=== PATIENT | female | born 1960 | race Caucasian/White ===

== ENCOUNTER 2019-08-23 07:53 | Outpatient (CLI) | payer BC, OTHER, SELFPAY ==
--- NOTE | ~2019-08-23 | MM_ITS ---
EXAMINATION: MM screening [facility] BI w avril HISTORY: Screening mammogram TECHNIQUE: Craniocaudal and mediolateral oblique 3-D tomosynthesis images were obtained and synthetic 2-D images were generated. CAD analysis was submitted and interpreted. COMPARISON: 08/18/2018, 04/21/2017, 08/26/2014 BREAST PARENCHYMAL COMPOSITION: The breasts are heterogeneously dense, which may obscure small masses . FINDINGS: There is no evidence of suspicious mass, calcification, or architectural distortion to sugg est malignancy in either breast. There has been no suspicious interval change. IMPRESSION: 1. No mammographic evidence of malignancy. 2. Recommend routine screening mammography in one year. BI-RADS Category 1: Negative Reviewed, dictated and finalized at location A.
== END 2019-08-23 07:54 | disposition home or self-care (01) ==
DX: Z12.31 Encounter for screening mammogram for malignant neoplasm of breast (principal)
CPT/HCPCS: 77063; 77067

== ENCOUNTER 2020-11-18 14:46 | Outpatient (CLI) | payer BC, OTHER, SELFPAY ==
--- NOTE | ~2020-11-18 | MM_ITS ---
EXAMINATION: MM screening [facility] BI w avril HISTORY: Screening TECHNIQUE: Craniocaudal and mediolateral oblique 3-D tomosynthesis images were obtained and synthetic 2-D images were generated. CAD analysis was submitted and interpreted. COMPARISON: Comparison to multiple prior studies sequentially, with oldest reviewed study dated 03/23. BREAST PARENCHYMAL COMPOSITION: The breasts are heterogeneously dense, which may obscure small masses . FINDINGS: There is no evidence of suspicious mass, calcification, or architectural distortion to sugg est malignancy in either breast. There has been no suspicious interval change. IMPRESSION: 1. No mammographic evidence of malignancy. 2. Recommend routine screening mammography in one year. BI-RADS Category 1: Negative Reviewed, dictated and finalized at location A.
== END 2020-11-18 14:47 | disposition home or self-care (01) ==
LOC: ANHIMG 14:47
PROVIDERS: PCP Family Medicine; Visit Provider Family Medicine
DX: Z12.31 Encounter for screening mammogram for malignant neoplasm of breast (principal)
CPT/HCPCS: 77063; 77067

== ENCOUNTER 2022-06-01 16:12 | Outpatient (CLI) | payer BC, OTHER, SELFPAY ==
--- NOTE | ~2022-06-01 | MM_ITS ---
EXAMINATION: MM screening [facility] BI w avril HISTORY: Screening TECHNIQUE: Craniocaudal and mediolateral oblique 3-D tomosynthesis images were obtained and synthetic 2-D images were generated. CAD analysis was submitted and interpreted. COMPARISON: Comparison to multiple prior studies sequentially, with oldest reviewed study dated 04/2013. BREAST PARENCHYMAL COMPOSITION: The breasts are heterogeneously dense, which may obscure small masses . FINDINGS: There is no evidence of suspicious mass, calcification, or architectural distortion to sugg est malignancy in either breast. There has been no suspicious interval change. IMPRESSION: 1. No mammographic evidence of malignancy. 2. Recommend routine screening mammography in one year. BI-RADS Category 1: Negative Reviewed, dictated and finalized at location A.
== END 2022-06-01 16:13 | disposition home or self-care (01) ==
LOC: ANHIMG 16:14
PROVIDERS: PCP Family Medicine; Visit Provider Family Medicine
DX: Z12.31 Encounter for screening mammogram for malignant neoplasm of breast (principal)
CPT/HCPCS: 77063; 77067

== ENCOUNTER 2022-12-22 00:12 | Day surgery (SDC) | payer BC, OTHER, SELFPAY ==
[2022-12-16 09:53] VITALS: BMI 21.7
[2022-12-22 06:34] VITALS: BP 99/65; PULSE 87; RESP 18; TEMP 36.2; O2SAT 99; BMI 22.8
[2022-12-22 06:44] LABS: Glucose Point of Care 230 mg/dl (65-105)
--- NOTE | 2022-12-22 06:46 | SUR.PREOP ---
Blood sugar 230. Pt. states that she took 1 Unit of Novalog at 0600. Dr. Silvestre aware.
[2022-12-22] MEDS: LACTATED RINGERS 1,000 ML 150 ML IV CONT (07:04)
--- NOTE | 2022-12-22 07:19 | PM.HPGS ---
History of Present Illness History of Present Illness Consent: Risks, benefits, and alternatives have been discussed and questions answered. Patient agrees to proceed with procedure. Chief complaint: Hx colon polyps Narrative: Misti Mcclain is a 62 year old female Presents for screening colonoscopy. Patient's current weight appetite and bowel movements are normal. Patient denies abdominal pain. She has had no bleeding. Patient does have a prior history of colon polyps. Colonoscopy 2018 was unremarkable. She had an adenomatous colon polyp in 2010. Additionally patient's sister is found to have several premalignant colon polyps. Patient presents for screening colonoscopy. Review of Systems Review of Systems: Review of systems noncontributory. [facility] Social History Social History Smoking packs per day: 0.75 Smoking cigarettes per day: 15.0 Years smoked: 15 Smoking pack-years: 11.25 Smoking status: Former smoker Tobacco type: cigarettes Alcohol intake: current Substance use: never Substance use type: does not use Living arrangements: alone Spiritual care concerns: No Meds Home Medications and Allergies Home Medications Medication Instructions Recorded Confirmed Type apixaban 5 mg tablet (Eliquis) 5 mg PO BID 12/16/22 12/16/22 History cetirizine 10 mg tablet (Zyrtec) 10 mg PO DAILY 12/16/22 12/16/22 History cholecalciferol (vitamin D3) 50 100 mcg PO DAILY 12/16/22 12/16/22 History mcg (2,000 unit) tablet (Vitamin D3) insulin aspart U-100 100 unit/mL See Rx Instructions .Route .COMPLEX 12/16/22 12/16/22 History (3 mL) subcutaneous pen (Novolog FlexPen U-100 Insulin aspart) insulin glargine 100 unit/mL 16.5 unit subcut HS 12/16/22 12/16/22 History subcutaneous solution (Lantus U-100 Insulin) metformin 500 mg tablet 500 mg PO BID 12/16/22 12/16/22 History zinc 22 mg tablet 22 mg PO DAILY 12/16/22 12/16/22 History Allergies Allergy/AdvReac Type Severity Reaction Status Date / Time No Known Allergies Allergy Verified 12/16/22 09:53 Vital Signs Vital Signs - 24 hr 12/22/22 06:34 Temperature 97.2 F L Pulse Rate 87 Respiratory Rate 18 Blood Pressure 99/65 L Pulse Oximetry 99 Oxygen Delivery Room Air Exam Narrative: Physical exam reveals patient to be alert. Vital signs stable. HEENT exam is unremarkable. Patient is anicteric. Lungs are clear to auscultation and percussion. Heart is without murmur or extra sounds. Abdomen with bowel sounds present soft nontender with no organomegaly. Digital external rectal exam normal. Assessment and Plan Assessment and plan (1) History of colon polyps: Code(s): Z86.010 - Personal history of colonic polyps Status: Acute Assessment and Plan: Patient has a history of adenomatous colon polyps. Additionally her sister has had colon polyps. Plan for surveillance colonoscopy now and consider this at 5 year intervals.
--- NOTE | 2022-12-22 07:24 | WPDANESEPPF ---
Anes - Initial Pre Proc Eval Procedure: Operation Date: 12/22/22 07:30 Proposed Procedures p Colonoscopy - Miko King MD Date/Time: 12/22/22 07:24 Surgeon: Miko King MD Pre Op Diagnosis: Hx colon polyps Patient Data Age: 62 Gender: F Height: 1.73 m Weight: 68.1 kg Last Vital Signs Temp 97.2 F L 12/22/22 06:34 Pulse 87 12/22/22 06:34 Resp 18 12/22/22 06:34 BP 99/65 L 12/22/22 06:34 Pulse Ox 99 12/22/22 06:34 O2 Del Method Room Air 12/22/22 06:34 Allergies Allergy/AdvReac Type Severity Reaction Status Date / Time No Known Allergies Allergy Verified 12/16/22 09:53 Home Medications Medication Instructions Recorded Confirmed Type apixaban 5 mg tablet (Eliquis) 5 mg PO BID 12/16/22 12/16/22 History cetirizine 10 mg tablet (Zyrtec) 10 mg PO DAILY 12/16/22 12/16/22 History cholecalciferol (vitamin D3) 50 100 mcg PO DAILY 12/16/22 12/16/22 History mcg (2,000 unit) tablet (Vitamin D3) insulin aspart U-100 100 unit/mL See Rx Instructions .Route .COMPLEX 12/16/22 12/16/22 History (3 mL) subcutaneous pen (Novolog FlexPen U-100 Insulin aspart) insulin glargine 100 unit/mL 16.5 unit subcut HS 12/16/22 12/16/22 History subcutaneous solution (Lantus U-100 Insulin) metformin 500 mg tablet 500 mg PO BID 12/16/22 12/16/22 History zinc 22 mg tablet 22 mg PO DAILY 12/16/22 12/16/22 History Laboratory Tests 12/22/22 06:40 POC Capillary Glucose 230 H mg/dl (65-105) Patient hx anesthesia problems: none Family hx anesthesia problems: none Results Review: All pre-operative results and documents have been reviewed as part of the pre-operative evaluation. [facility] Social History Social History Smoking packs per day: 0.75 Smoking cigarettes per day: 15.0 Years smoked: 15 Smoking pack-years: 11.25 Smoking status: Former smoker Tobacco type: cigarettes Alcohol intake: current Substance use: never Substance use type: does not use Living arrangements: alone Spiritual care concerns: No Anes - Eval Final PreProcedure Day of Procedure 12/22/22 07:24 Patient weight: normal Heart: regular rate and rhythm Lungs: clear to auscultation Airway: Mallampati scale class II Neurological: alert and oriented Last oral intake: >/= 8 hours ASA classification: III Emergent: no Anesthetic plan: proceed Anesthesia type and monitoring: general GIVS and standard monitoring Results Review: All pre-operative results and documents have been reviewed as part of the pre-operative evaluation. Informed Consent: The patient's anesthetic plan and its attendant risks and benefits were discussed with the patient/family/POA. Questions were solicited and answers provided to the satisfaction of the patient/family/POA.
[2022-12-22 07:52] VITALS: BP 124/96; PULSE 81; RESP 18; O2SAT 100
[2022-12-22 08:02] VITALS: BP 102/66; PULSE 73; RESP 15; O2SAT 100
--- NOTE | 2022-12-22 08:03 | SUR.PHASEII ---
BLOOD SUGAR 236 PER PT DEVICE
[2022-12-22 08:12] VITALS: BP 108/67; PULSE 76; RESP 17; O2SAT 100
== END 2022-12-22 08:26 | disposition home or self-care (01) ==
PROVIDERS: PCP Family Medicine; Visit Provider Internal Medicine Gastroenterology
PROC: 0DJD8ZZ Inspection of Lower Intestinal Tract, Via Natural or Artificial Opening Endoscopic (ICD-10-PCS; CPT 45378; principal; 2022-12-22 07:30)
DX: Z12.11 Encounter for screening for malignant neoplasm of colon (principal); K51.90 Ulcerative colitis, unspecified, without complications; Z86.010 Personal history of colon polyps; Z83.719 Family history of colon polyps, unspecified; Z79.01 Long term (current) use of anticoagulants; Z79.4 Long term (current) use of insulin; Z79.84 Long term (current) use of oral hypoglycemic drugs; Z87.891 Personal history of nicotine dependence
CPT/HCPCS: 45380; 82948; 88305; J2704; J7120

== ENCOUNTER 2023-06-10 08:29 | Outpatient (CLI) | payer BC, OTHER, SELFPAY ==
--- NOTE | ~2023-06-10 | MM_ITS ---
EXAMINATION: MM screening [facility] BI w avril HISTORY: Screening mammogram TECHNIQUE: Craniocaudal and mediolateral oblique 3-D tomosynthesis images were obtained and synthetic 2-D images were generated. CAD analysis was submitted and interpreted. COMPARISON: 06/01/2022, 11/18/2020 bilateral screening mammogram examinations BREAST PARENCHYMAL COMPOSITION: The breasts are extremely dense, which lowers the sensitivity of mamm ography. FINDINGS: There is no evidence of suspicious mass, calcification, or architectural distortion to sugg est malignancy in either breast. There has been no suspicious interval change. IMPRESSION: 1. No mammographic evidence of malignancy. 2. Recommend routine screening mammography in one year. BI-RADS Category 1: Negative Reviewed, dictated and finalized at location B.
== END 2023-06-10 08:30 | disposition home or self-care (01) ==
PROVIDERS: PCP Family Medicine; Visit Provider Family Medicine
DX: Z12.31 Encounter for screening mammogram for malignant neoplasm of breast (principal)
CPT/HCPCS: 77063; 77067

== ENCOUNTER 2024-07-01 09:27 | Outpatient (CLI) | payer BC, OTHER, SELFPAY ==
--- NOTE | ~2024-07-01 | MM_ITS ---
EXAMINATION: MM screening kristin BI w avril HISTORY: Screening mammogram TECHNIQUE: Craniocaudal and mediolateral oblique 3-D tomosynthesis images were obtained and synthetic 2-D images were generated. CAD analysis was submitted and interpreted. COMPARISON: 06/10/2023, 06/01/2022, 11/18/2020 BREAST PARENCHYMAL COMPOSITION:Dense: The breasts are heterogeneously dense, which may obscure small masses. FINDINGS: No suspicious mass, calcification, or architectural distortion are identified in either luda ast to suggest malignancy. There has been no suspicious interval change. IMPRESSION: No mammographic evidence of malignancy. Recommend routine screening mammography in one year. BI-RADS Category 1: Negative Reviewed, dictated and finalized at location .
--- OUTSIDE RECORDS SUMMARY | 2024-07-01 10:19 | XMS_ITS | Encounter Summary ---
Author Organization [facility] Address [address] [place] [address] Care Team Providers Care Glazing Superintendent Name Role Phone Unavailable Primary Care Provider Unavailabl e Encounter Details Date Type Department Care Team (Late st Contact Info) Description 03/08/[address] [facility] - DermPath Lab [address] [place] [id number] Muukl Wilkinson MD [address] [place], [place] [id number] Social History Tobacco Use Types Packs/Day Years Used Date Smoking Tobacco: Never Assessed Comments Unknown Sex and Gender Information Value Date Recorded Sex Assigned at Not on file Legal Sex Female 5:33 PM TRAVEL FREIGHT AND PASSENGER AGENT Gender Identity Not on file Sexual Orientation Not on file documented as of this encounter Plan of Treatment Not on file documented as of this encounter Procedures Procedure Name Priority Date/Time Associated Diagnosis Comments DERMATOPATHOLOGY Routine 03/07/2023 3:33 AM TRAVEL FREIGHT AND PASSENGER AGENT documented in this encounter Results * DERMATOPATHOLOGY (03/07/2023 3:33 AM TRAVEL FREIGHT AND PASSENGER AGENT) Case Report Dermatopathology Report Case: [id number] Authorizing Provider: Mukul Wilkinson MD Collected: 03/07/2023 03:33 AM Ordering Location: [facility] DermPath Lab Received: 03/08/2023 02:22 PM Pathologist: Jaz Yi MD Specimen: Skin, dorsal right hand 2:50 PM TRAVEL FREIGHT AND PASSENGER AGENT DERMATOPATHOLOGY LABORATORY Final Diagnosis Specimen A. SKIN, dorsal right hand: BENIGN VERRUCOUS KERATOSIS, INFLAMED (L82.1) (see microscopic description) 2:50 PM TRAVEL FREIGHT AND PASSENGER AGENT DERMATOPATHOLOGY LABORATORY Clinical History R/O SCC 2:50 PM [facility] DERMATOPATHOLOGY LABORATORY Gross Description Specimen A: Received is one formalin filled container labeled with the patient's name and designated dorsal right hand. The specimen consists of a shave biopsy measuring 7x7x1 mm. Jar 0. 2:50 PM [facility] DERMATOPATHOLOGY LABORATORY Microscopic Description Specimen A. SKIN, dorsal right hand: Sections show hyperkeratosis, slight papillomatosis, hypergranulosis, and acanthosis. IA lymphohistiocytic infiltrate is present within the dermis where it focally interacts with the epidermis. Scattered necrotic keratinocytes are observed. These histological findings can be seen in a verruca vulgaris or a seborrheic keratosis. Additional deeper sections were obtained and reviewed. 2:50 PM [facility] DERMATOPATHOLOGY LABORATORY Disclaimer An external and internal positive and negative controls are appropriate for the histochemical, immunohistochemical and immunofluorescence stain(s) in this case (if any), except where stated explicitly. The performance characteristics of the stain(s) cited in this report were developed and its performance characteristic determined by the Dermatopathology Laboratory at [facility], directed by Dr. Elvira Bo. These tests need not be, and therefore are not, approved by the [place] Food and Drug Administration. The tests are used for clinical purposes. Billing Codes Specimen Charges Stain Charges 00402 1 2:50 PM [facility] DERMATOPATHOLOGY LABORATORY Embedded Images 2:50 PM [facility] DERMATOPATHOLOGY LABORATORY Pathology/Cytolo gy TISSUE SPECIMEN FROM SKIN / Unknown 03/07/2023 3:33 AM TRAVEL FREIGHT AND PASSENGER AGENT 03/08/2023 2:22 PM TRAVEL FREIGHT AND PASSENGER AGENT us Mukul Wilkinson MD LAB - PATHOLOGY/CYTOLOGY ORD ERABLES Final Result DERMATOPATHOLOGY LABORATORY [facility] - Department of Dermatology [address] [place] [address], [facility] [phone] documented in this encounter Visit Diagnoses Not on filedocumented in this encounter
--- OUTSIDE RECORDS SUMMARY | 2024-07-01 10:19 | XMS_ITS | Clinical Summary ---
Author Organization [facility] Address [address] [place] [address] Care Team Providers Care Dot Etcher Name Role Phone Perry Llanos MD Primary Care Provider [phone] Allergies No known active allergies Medications NOVOLOG FLEXPEN U-100 INSULIN 100 unit/mL (3 mL) insulin pen INJ 10 UNITS SC B EACH MEAL UTD 3 9 Active LANTUS U-100 INSULIN 100 unit/mL injection Inject 20 Units under the skin nightly 5 9 Active metFORMIN (GLUCOPHAGE) 500 mg tablet TK 1 T PO BID B MEALS 3 9 Active BD ULTRA-FINE MINI PEN NEEDLE 31 gauge x 3/16 needle U WITH NOVOLOG UTD 5 9 Active insulin syringe-needle U-100 0.5 mL 31 gauge x 5/16 syringe USE DIRECTED WITH INSULIN 5 9 Active glucagon (Baqsimi) 3 mg/actuation spray,non-aeros ol Administer 1 spray (3 mg total) into one nostril as needed (for use in case of emergency for hypoglycemia) 1 each 2 1 Active Additional Information Patient not taking.Reported on 04/03/2024 Eliquis 5 mg tablet Take 1 tablet (5 mg total) by mouth 2 (two) times a day 3 Active FreeStyle Lite Strips strip USE TO TEST FOUR TIMES DAILY DIRECTED 400 strip 2 3 Active cholecalciferol (VITAMIN D-3) 2000 unit tablet Take by mouth daily Active zinc acetate 25 mg (zinc) capsule Take by mouth Active Active Problems Problem Noted Date Diagnosed Date Arthralgia of ankle 10/10/2013 Arthralgia of shoulder 11/30/2011 Type 1 diabetes mellitus without complication Assessment & Plan (04/03/2024 10:08 AM CLAY MAKER): Continue Mmetformin, DI and CGM Assessment & Plan (03/08/2023 10:36 AM CLAY MAKER): A1C 7.9% Is on 16.5 units Lantus, Novolog 1:5 with meals ISF 30 Labs per PCP in May, will ensure Alb/Cr and c-peptide are obtained and forwarded Eye exam Mar 2023 We discussed possibly increase basal insulin, hesitant to change at this time, discussed using 10 unit lantus in AM/6.5 units in PM Assessment & Plan (12/11/2020 12:55 PM CDT): C-peptide today to confirm Type 1 DM A1C 8% recently with PCP Currently taking Lantus 20u at 2200, using 1:15 at breakfast, 1:4 with lunch and 1:5 with dinner Dexcom reviewed, extremely labile. 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 Decrease Lantus by 20% to 16u HS, breakfast ratio to 1:10, lunch and dinner ratios remain the same Notify us for DEXCOM review in 1 week Referral to RD and CDNE Encounters Date Type Department Care Team Description 04/03/2024 9:30 AM CLAY MAKER Office Visit [facility] [address] [place] [address] Vladimir Willoughby MD Type 1 diabetes mellitus without complication (HCC) (Primary Dx) from Last 3 Months Surgical History Surgery Date Site/Laterality Comments MENISCUS SURGERY 03/06/2006 - 03/05/2007 Right ABDOMINAL MASS RESECTION 03/06/2010 - 03/05/2011 Medical History Medical History Date Comments Diabetes mellitus (HCC) Family History Medical History Relation Name Comments Arthritis Father Family history of arthritis - (Added by TW Conv) Diabetes Father Family history of diabetes mellitus - (Added by TW Conv) Heart disease Father Lung disease Father Lung trouble - (Added by TW Conv) Multiple sclerosis Father Family hi story of multiple sclerosis - (Added by TW Conv) Stroke Father Family history of cerebrovascular accident - (Added by TW Conv) Arthritis Mother Family history of arthritis - (Added by TW Conv) Lung disease Mother Multiple sclerosis Mother Family hi story of multiple sclerosis - (Added by TW Conv) Stroke Mother Relation Name Status Comments Father Mother Social History Tobacco Use Types Packs/Day Years Used Date Smoking Tobacco: Former Cigarettes Q uit: 1997 Smokeless Tobacco: Never Tobacco Cessation:Counseling Given: Not Answered Comments Unknown Sex and Gender Information Value Date Recorded Sex Assigned at Not on file Legal Sex Female 7:37 PM CLAY MAKER Gender Identity Not on file Sexual Orientation Not on file Obstetrics History Last Filed Vital Signs Vital Sign Reading Time Taken Comments Blood Pressure 100/64 04/03/2024 9:50 AM CLAY MAKER Pulse 74 04/03/2024 9:50 AM CLAY MAKER Temperature - - Respiratory Rate - - Oxygen Saturation 98% 04/03/2024 9:50 AM CLAY MAKER Inhaled Oxygen Concentration - - Weight 73.5 kg (162 lb) 04/03/2024 9:50 AM CLAY MAKER Height 172.7 cm (5' 8 ) 04/03/2024 9:50 AM CLAY MAKER Body Mass Index 24.63 04/03/2024 9:50 AM CLAY MAKER Plan of Treatment Health Maintenance Due Date Last Done Comments Albumin Creatinine Ratio, Urine 1961 Breast Cancer Screening-Mammogram 1961 Cervical Cancer Screening 1961 Colon Cancer Screening-Colonoscopy 1961 Depression Screening 1961 Foot Exam 1961 Hepatitis C Screening 1961 Dilated Eye Exam 05/05/1971 DTaP/Tdap/Td Vaccine (1 - Tdap) 1972 Hepatitis B Screening 05/05/1979 Regular Well Visit/Exam 18-64 05/05/1979 Pneumococcal vaccine <65 (1 of 2 - PCV) 1980 Zoster Vaccine (1 of 2) 05/05/2011 eGFR 12/11/2021 12/11/2020 TSH Level 11/05/2022 11/05/2021 Lipid Panel 03/08/2024 03/08/2023, 09/08/2020 Hemoglobin A1C 10/01/2024 04/03/2024, 010 05/2023, 08/11/2021, Additional history exists Influenza Vaccine (Season Ended) 2024 Procedures Procedure Name Priority Date/Time Associated Diagnosis Comments POCT HEMOGLOBIN A1C Routine 04/03/2024 9 :59 AM CLAY MAKER Type 1 diabetes mellitus without complication (HCC) POCT LIPID PANEL Routine 03/08/2023 10:0 7 AM CLAY MAKER Type 1 diabetes mellitus without complication (HCC) BASIC METABOLIC PANEL Routine 12/11/2020 11:30 AM CDT Type 1 diabetes mellitus without complication (HCC) from Last 3 Months or Most Recently Relevant to Health Maintenance Results * POCT hemoglobin A1c (04/03/2024 9:59 AM CLAY MAKER) Hemoglobin A1C, POC 7.2 4.0 - 5.6 % Blood 04/03/2024 9:59 AM CLAY MAKER Vladimir Willoughby MD POINT OF CARE TEST ORDER LATIA Final Result * POCT lipid panel (03/08/2023 10:07 AM CLAY MAKER) HDL, POC 63 mg/dL Triglycerides, POC 64 mg/dL LDL Cholesterol POC 100 mg/dL Chol/HDL Ratio, POC 2.8 Non-HDL Cholesterol, POC 113 mg/dL Cholesterol Total, POC 176 mg/dL Capillary blood 03/08/2023 1 0:07 AM CLAY MAKER Julia Márquez NP POINT OF CARE TEST ORDER LATIA Final Result * (ABNORMAL) Basic metabolic panel (12/11/2020 11:30 AM CDT) Glucose 124(H) 65 - 99 mg/dL [facility] - 01 BUN 12 6 - 24 mg/dL [facility] - 01 Creatinine, Serum 0.60 0.57 - 1.00 mg/dL [facility] - 01 eGFR If NonAfricn Am 100 >59 mL/min/1.7 3 [facility] - 01 eGFR If Africn Am 115 >59 mL/min/1.7 3 [facility] - 01 Comment: [facility] currently reports eGFR in compliance with the current recommendations of the National Kidney Foundation. [facility] will update reporting as new guidelines are published from the NKF-ASN Task force. BUN/creat ratio 20 9 - 23 [facility] - 01 Sodium 139 134 - 144 mmol/L [facility] - 01 Potassium, sr 4.5 3.5 - 5.2 mmol/L [facility] - 01 Chloride 98 96 - 106 mmol/L [facility] - 01 CO2 28 20 - 29 mmol/L [facility] - 01 Calcium 10.0 8.7 - 10.2 mg/dL [facility] - 01 Blood specimen (specimen) 12/11/2020 11:30 AM CDT 12/11/2020 Narrative [facility] - 12/12/2020 3:08 PM CDT Performed at: - [facility] [place] [id number] Cardiology Teacher: Sarthak Burks PhD, Phone: [phone] Julia Márquez OIL SPOT W[employer]ER LAB BLOOD ORDERABLES Fin al Result Performing Organization Address City/State/[facility] Co de Phone Number [facility] - 01 from Last 3 Months or Most Recently Relevant to Health [place] [address] ARTURO GASTON CLAIMS [facility] Member Subscriber Plan / Payer ( fective 2018-Present) Name:Misti Chávez Relation to Subscriber:Spouse Name:FAYE CHÁVEZ Subscriber ID:Not on file Date of :1965 Payer ID:[id number] (NAIC) Group ID:[id number] Type:[facility] Address: [address] CLAIMS [facility] [employer] Member Subscriber Plan / Payer (Ef fective 2006-Present) Name:Misti Chávez Relation to Subscriber:Self Name:Misti Chávez Payer ID:[id number] (NAIC) Group ID:[id number] Type:[employer] Address: [address] [place] [id number] [facility] Care Teams Dot Etcher Relationship Specialty Start Date End Date Perry Llanos MD [address] [address] PCP - General Family Medicine 12/11/20
--- OUTSIDE RECORDS SUMMARY | 2024-07-01 10:19 | XMS_ITS | Referral Summary ---
Author Organization [facility] Address [address] [place] [address] Care Team Providers Care Junior Technical Writer Name Role Phone Perry Llanos MD Primary Care Provider [phone] Encounters Date Type Department Care Team Description 04/03/2024 9:30 AM FACE MAN Office Visit [facility] [address] [place] [address] [address] [place] [address] Vladimir Willoughby MD Type 1 diabetes mellitus without complication (HCC) (Primary Dx) from Last 3 Months Allergies No known active allergies Medications NOVOLOG [...] complication Assessment & Plan (04/03/2024 10:08 AM FACE MAN): Continue Mmetformin, DI and CGM Assessment & Plan (03/08/2023 10:36 AM FACE MAN): A1C 7.9% Is on 16.5 units Lantus, [...] Dexcom reviewed, extremely labile. Is going low brass sorter and rising significantly with breakfast, much more blunted rise with lunch and dinner which she admits are <20g carbs. Decrease Lantus by 20% to 16u HS, breakfast ratio to 1:10, lunch and dinner ratios remain the same Notify us for DEXCOM review in 1 [address]erral to RD and CDNE Social History Tobacco Use Types Packs/Day Years Used Date Smoking Tobacco: Former Cigarettes Q uit: 1997 Smokeless Tobacco: Never Tobacco Cessation:Counseling Given: Not Answered Comments Unknown Sex and Gender Information Value Date Recorded Sex Assigned at Not on file Legal Sex Female 7:37 PM FACE MAN Gender Identity Not on file Sexual Orientation Not on file Last Filed Vital Signs Vital Sign Reading Time Taken Comments Blood Pressure 100/64 04/03/2024 9:50 AM FACE MAN Pulse 74 04/03/2024 9:50 AM FACE MAN Temperature - - Respiratory Rate - - Oxygen Saturation 98% 04/03/2024 9:50 AM FACE MAN Inhaled Oxygen Concentration - - Weight 73.5 kg (162 lb) 04/03/2024 9:50 AM FACE MAN Height 172.7 cm (5' 8 ) 04/03/2024 9:50 AM FACE MAN Body Mass Index 24.63 04/03/2024 9:50 AM FACE MAN Plan of Treatment Not on file Procedures Procedure Name Priority Date/Time Associated Diagnosis Comments POCT HEMOGLOBIN A1C Routine 04/03/2024 9 :59 AM FACE MAN Type 1 diabetes mellitus without complication (HCC) POCT LIPID PANEL Routine 03/08/2023 10:0 7 AM FACE MAN Type 1 diabetes mellitus without complication (HCC) BASIC METABOLIC PANEL Routine 12/11/2020 11:30 AM CDT Type 1 diabetes mellitus without complication (HCC) from Last 3 Months or Most Recently Relevant to Health Maintenance Results * POCT hemoglobin A1c (04/03/2024 9:59 AM FACE MAN) Hemoglobin A1C, POC 7.2 4.0 - 5.6 % Blood 04/03/2024 9:59 AM FACE MAN Vladimir Willoughby MD POINT OF CARE TEST ORDER LATIA Final Result * POCT lipid panel (03/08/2023 10:07 AM FACE MAN) HDL, POC 63 mg/dL Triglycerides, POC 64 mg/dL LDL Cholesterol POC 100 mg/dL Chol/HDL Ratio, POC 2.8 Non-HDL Cholesterol, POC 113 mg/dL Cholesterol Total, POC 176 mg/dL Capillary blood 03/08/2023 1 0:07 AM FACE MAN Julia Márquez ENTERPRISE SYSTEMS ADMINISTRATOR POINT OF CARE TEST ORDER LATIA Final [...] 12/12/2020 3:08 PM CDT Performed at: - [facility] [id number] Occup Ther: Sarthak Burks PhD, Phone: [phone] us Julia Márquez ENTERPRISE SYSTEMS ADMINISTRATOR LAB BLOOD ORDERABLES Fin al Result [facility] - 01 from Last 3 Months or Most Recently Relevant to Health Maintenance [place] [address] [employer] Member Subscriber Plan / Payer (Ef fective 2006-Present) Name:Misti Chávez Relation to Subscriber:Self Name:Misti Chávez Payer ID:[id number] (NAIC) Group ID:[id number] Type:[employer] Address: [address] CLAIMS [place], [place] [facility] ACCESS Member Subscriber Plan / Payer ( fective 2018-Present) Name:Misti Chávez Relation to Subscriber:Spouse Name:FAYE CHÁVEZ Subscriber ID:Not on file Date of :1965 Payer ID:[id number] (NAIC) Group ID:[id number] Type:[employer] Address: [address] CLAIMS [facility] FEDERAL Member Subscriber Plan / Payer (Ef fective 2006-Present) Name:Misti Chávez Relation to Subscriber:Self Name:Msiti Chávez Payer ID:[id number] (NAIC) Group ID:[id number] Type:[facility] Address: [address] [facility] Care Teams Junior Technical Writer Relationship Specialty Start Date End Date Perry Llanos MD [address] [address] PCP - General Family Medicine 12/11/20
--- OUTSIDE RECORDS SUMMARY | 2024-07-01 10:19 | XMS_ITS | Clinical Summary ---
Author Organization [facility] Address [address] [place] [address] Phone Care Team Providers Care Prevention Specialist Name Role Phone Perry Llanos MD Primary Care Provider [phone] Allergies No known active allergies Medications metFORMIN (GLUCOPHAGE) 500 mg tablet Take 500 mg by mouth 2 times daily with meals. Active insulin glargine (LANTUS) 100 unit/mL vial Inject 15 Units by subcutaneous injection. 7 Active cetirizine (ZyrTEC) 5 mg tablet Take 5 mg by mouth daily. Active Insulin Syringe-Needle U-100 0.5 mL 31 gauge x 5/16 Syringe USE DIRECTED WITH INSULIN 9 Active Insulin Zoar, Disposable, 31 gauge x 3/16 Needle U WITH NOVOLOG UTD 9 Active insulin aspart U-100 (NovoLOG) 100 unit/mL pen syringe 4 Units. Three to four 9 Active blood sugar diagnostic Strip Use to test blood sugar 4 times per day. 1 Active clobetasoL (TEMOVATE) 0.05 % Cream APPLY TOPICALLY TO THE AFFECTED AREA DAILY 2 Active glucagon (GLUCAGEN) 1 mg Recon Soln 1 Active furosemide (LASIX) 20 mg tablet Take 1 Tablet by mouth 1 time daily as needed for weight gain >5 lbs in 24 hours). 5 Tablet 02/21/2022 2:56 PM PROCESS ARTIST 2 Active Additional Information Patient not taking.Reported on 03/13/2024 apixaban (Eliquis) 5 mg tablet TAKE 1 TABLET(5 MG) BY MOUTH TWICE DAILY 180 Tablet 1 4 Active Additional Information Patient taking differently:5 mg OralDAILY, Reported on 03/13/2024 Active Problems Patient Care Coordination No te Formatting of this note migh t be different from the original. Loco Hodge MD--Mumps Developer ([facility] @ ) Problem Noted Date Diagnosed Date S/P ablation of atrial flutter 09/29/2021 Heart palpitations 09/29/2021 Atrial flutter with rapid ventricular response 0 06/25/2021 Paroxysmal atrial flutter 06/25/2021 Type 2 diabetes mellitus wit hout complication, with long-term current use of insulin 12/04/2020 Encounters Date Type Department Care Team Description 05/07/2024 External Device Data ST[facility] ABSTRACTION Provider, Abstract 04/30/2024 External Device Data [facility] ABSTRACTION Provider, Abstract 04/24/2024 External Device Data [facility] ABSTRACTION Provider, Abstract 04/02/2024 External Device Data ST[facility] ABSTRACTION Provider, Abstract from Last 3 Months Family History Medical History Relation Name Comments Diabetes Brother 1 Elevated Lipids Brother 1 Diabetes Brother 2 Healthy Daughter Diabetes Father 66 Dementia Mother 83 Elevated Lipids Mother 83 Heart Attack Mother 83 Multiple Sclerosis Mother 83 Thyroid Disease Mother 83 Diabetes Paternal Grandmother Healthy Sister Thyroid Disease Sister Relation Name Status Comments Brother 1 Alive Brother 2 Alive Daughter Alive Father 66 Maternal Grandfather Maternal Grandmother Mother 83 Paternal Grandfather Paternal Grandmother Sister Alive Social History Tobacco Use Types Packs/Day Years Used Date Smoking Tobacco: Former Smokeless Tobacco: Never Tobacco Cessation:Counseling Given: Not Answered Comments:Quit 25 years ago Alcohol Use Standard Drinks/Week Comments Not Currently 0 (1 standard drink = 0.6 oz pur e alcohol) Comments No Sex and Gender Information Value Date Recorded Sex Assigned at Not on file Legal Sex Female 11:23 AM PROCESS ARTIST Gender Identity Not on file Sexual Orientation Not on file 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 Not on file Not o n file Last Filed Vital Signs Vital Sign Reading Time Taken Comments Blood Pressure 102/64 03/13/2024 9:04 AM PROCESS ARTIST Pulse 80 03/13/2024 9:04 AM PROCESS ARTIST Temperature 36.3 C (97.4 F) 02/21/2022 12:00 PM PROCESS ARTIST Respiratory Rate 7 02/21/2022 1:45 PM PROCESS ARTIST Oxygen Saturation 96% 03/13/2024 9:04 AM PROCESS ARTIST Inhaled Oxygen Concentration - - Weight 68.9 kg (152 lb) 03/13/2024 9:04 AM PROCESS ARTIST Height 174 cm (5' 8.5 ) 03/13/2024 9:04 AM PROCESS ARTIST Body Mass Index 22.78 03/13/2024 9:04 AM PROCESS ARTIST Plan of Treatment Upcoming Encounters Date Type Department Care Team (Late st Contact Info) Description 03/14/2025 8:30 AM PROCESS ARTIST Office Visit [facility] [address] [place] [address] Kalia Ramirez MD [address] [place] [address] Health Maintenance Due Date Last Done Comments DIABETES ANNUAL FOOT EXAM 05/05/1979 DIABETES ANNUAL RETINAL EXAM 05/05/1979 DIABETES MICROALBUMIN ANNUAL SCREEN 05/05/1979 LDL CHOLESTEROL ANNUAL 05/05/1979 DTAP/TDAP/TD VACCINES (1 - Tdap) 1980 BREAST CANCER SCREENING 2001 COLORECTAL SCREENING 2006 Colorectal Cancer Screening 2006 FIT-DNA Q 3 years 2006 FIT/FOBT Q 1 year 2006 Flex Sig/CT Colonography Q 5 years 2006 ZOSTER VACCINE (1 of 2) 05/05/2011 RSV VACCINE (60+ or ) (1 - Risk 60-74 years 1-dose series) 2021 DIABETES HBA1C Q 6 MONTHS 09/06/20232023, 08/11/2021, 09/08/2020, Additional history exists INFLUENZA VACCINE (#1) 2023 PAP SMEAR 12/05/2023 12/04/2020, 02/08/2019 CERVICAL CANCER SCREENING 12/04/2025 HPV/Cotest (21-29) 12/04/2025 12/04/2020, 02/08/2019 HPV/Cotest (30-65) 12/04/2025 12/04/2020, 02/08/2019 Medical Devices Implanted Type Area Custodial Worker Device Identifier Shelf Expiration Date Model / Serial / Lot Dev Vns Vasc Clsr Vascade Mvp St [id number] - [id number] Implanted:Qty : 1 on 08/09/2021 at [facility] Device Right: Groin [employer] 06/04/2023 800-612C- 10U / / [id number] 06C Dev Vns Vasc Clsr Vascade Mvp [address] [id number] - [id number] Implanted:Qty : 1 on 08/09/2021 at [facility] Device Right: Groin [employer] 06/04/2023 800-612C- 10U / / [id number] 06C Dev Vns Vasc Clsr Vascade Mvp [address] [id number] - [id number] Implanted:Qty : 1 on 08/09/2021 at [facility] Device Left: Groin [employer] 06/04/2023 800-612C- 10U / / [id number] 06C Dev Vns Vasc Clsr Vascade M[address] [id number] - [id number] Implanted:Qty : 1 on 02/21/2022 at [facility] Device Left: Groin [employer] 11/30/2023 800-612C- 10U / +[id number] / [id number] 29C Dev Vns Vasc Clsr Vascade Mvp [address] [id number] - [id number] Implanted:Qty : 1 on 02/21/2022 at [facility] Device Right: Groin [employer] 11/30/2023 800-612C- 10U / +[id number] / [id number] 29C Dev Vns Vasc Clsr Vascade M[address] [id number] - [id number] Implanted:Qty : 1 on 02/21/2022 at [facility] Device Right: Groin [employer] 11/30/2023 800-612C- 10U / +[id number] / [id number] 29C Procedures Procedure Name Priority Date/Time Associated Diagnosis Comments CERV/VAG CYTO AGE BASED SCREEN PAP Routine 12/04/2020 1:12 PM CDT Encounter for gynecological examination with abnormal finding Screening for HPV (human papillomavirus) from Last 3 Months or Most Recently Relevant to Health Maintenance Results * CERV/VAG CYTO AGE BASED SCREEN PAP (12/04/2020 1:12 PM CDT) SEE NOTE [facility] Comment: This order for age-based cervical cancer and STI screening follows ACOG guidelines(PB 168, 140, PFE624). See individual assays for performing site location. CLINICAL INFORMATION [facility] Comment:Postmenopausal LAST MENSTRUAL PERIOD [facility] Comment:INFORMATION NOT PROV IDED PREV PAP: [facility] Comment:INFORMATION NOT PROV IDED PREV BX: [facility] Comment:INFORMATION NOT PROV IDED SOURCE [facility] Comment:Endocervix ADEQUACY: [facility] Comment:SATISFACTORY FOR KOLE LUATION PAP INTERP [facility] Comment: Negative for intraepithelial lesion or malignancy. Atrophic pattern; predominantly parabasal cells COMMENT [facility] Comment: This Pap test has been evaluated with computer assisted technology. COMPILATION CLERK: [facility] Comment: TMK, CT(ASCP) CT screening location: [place] [address] [place] [address] SEE NOTE [facility] Comment: EXPLANATORY NOTE: The Pap is a screening test for cervical cancer. It is not a diagnostic test and is subject to false negative and false positive results. It is most reliable when a satisfactory sample, regularly obtained, is submitted with relevant clinical findings and history, and when the Pap result is evaluated along with historic and current clinical information. HPV E6/E7 Not Detected Not Detected [facility] Comment: Methodology: Clinical Biochemical Geneticist-Mediated Amplification This assay detects E6/E7 viral messenger RNA (mRNA) from 14 high-risk HPV types (16,18,31,33,35,39,45,51,52,56,58,59,66,68). The analytical performance characteristics of this assay have been determined by [facility]. The modifications have not been cleared or approved by the FDA. This assay has been validated pursuant to the CLIA regulations and is used for clinical purposes. For additional information, please refer to http://education.51edj.WebThriftStore/faq/SVX869o6 (This link if provided for information/ educational purposes only.) Test Performed at: [facility] [address] [id number] Rusty Page D.O., MPH SL [facility]ital SWAB OF ENDOCERVIX / Unknown 12/04/2020 1:12 PM CDT 12/04/2020 11:37 PM CDT us Mellisa Garcia BRANCH MAKER PATHOLOGY/CYTOLOGY ORDERABLES Final Result [facility] [address] [place] [address] from Last 3 Months or Most Recently Relevant to Health Maintenance Insurance [facility] [employer] Advance Directives For more information, please contact: [phone] Documents on File Type Date Recorded Patient Rn Case Mgr Expl anation Advance Directive Living Will 06/25/2021 3:57 PM Advance Directive POA 06/25/2021 3:57 PM * Full Code (Latest Code Status on File) Date Activated Date Inactivated Comments 02/21/2022 5:54 AM 02/21/2022 6:03 PM * Full Code Date Activated Date Inactivated Comments 08/09/2021 5:48 AM 08/09/2021 4:09 PM * Full Code Date Activated Date Inactivated Comments 06/25/2021 9:09 PM 06/26/2021 5:56 PM Care Teams Prevention Specialist Relationship Specialty Start Date End Date Perry Llanos MD [address] [address] PCP - General Family Practice 02/04/19
--- OUTSIDE RECORDS SUMMARY | 2024-07-01 10:19 | XMS_ITS | Clinical Summary ---
Author Organization [facility] Address [address] [place] [address] Care Team Providers Care Sanitation Inspector Name Role Phone Unavailable Primary Care Provider Unavailabl e Source Comments [facility] [employer],non-owned Affiliates and Associated Physician Practices is amultiple site organization consisting of ambulatory clinics and hospital sitesin [place], [place], [place] and [place]. This disclosure is being madepursuant to the Care Everywhere program and may not contain all information available regarding this patient. Last updated 17.[facility] [employer] Social History Tobacco Use Types Packs/Day Years Used Date Smoking Tobacco: Never Assessed Comments Unknown Sex and Gender Information Value Date Recorded Sex Assigned at Not on file Legal Sex Female 5:33 PM CRIMPER ASSEMBLER Gender Identity Not on file Sexual Orientation Not on file Plan of Treatment Health Maintenance Due Date Last Done Comments COLOGUARD (AGES 45-75) - COL ON CA SCREENING 1961 COLON MONITORING 1961 COLONOSCOPY - COLON CA SCREENING 1961 CT COLONOGRAPHY - COLON CA SCREENING 1961 Colorectal Cancer Screening 1961 FIT - COLON CA SCREENING 1961 FLEX SIG - COLON CA SCREENING 1961 LIPID TESTING 1961 MAMMOGRAM 1961 PAP SMEAR 1961 HIV SCREENING 1976 HEPATITIS C SCREENING 04/30/1979 DTAP/TDAP/TD VACCINES (1 - Tdap) 1980 PNEUMOCOCCAL VACCINE 50+ (1 of 1 - PCV) 05/05/2011 ZOSTER VACCINE (1 of 2) 05/05/2011 COVID-19 VACCINE ( - 2023-2 5 season) 2023 DEPRESSION SCREENING 03/06/2024 INFLUENZA VACCINE (Season Ended) 2024 Respiratory Syncytial Virus (RSV) Vaccine Pt: or over 60 yrs (1 - 1-dose 75+ series) 2036 HEPATITIS B VACCINE Aged Out No longe r eligible based on patient's age to complete this topic HIB VACCINE Aged Out No longer eligi ble based on patient's age to complete this topic HPV VACCINE Aged Out No longer eligi ble based on patient's age to complete this topic MENINGOCOCCAL (Group B) VACC INE SHARED DECISION-MAKING Aged Out No longer eligibl e based on patient's age to complete this topic MENINGOCOCCAL GROUPS A/C/Y/W VACCINE Aged Out No longer eligible b ased on patient's age to complete this topic Insurance [facility]
== END 2024-07-01 09:28 | disposition home or self-care (01) ==
LOC: ANHIMG 09:30
PROVIDERS: PCP Family Medicine; Visit Provider Family Medicine
DX: Z12.31 Encounter for screening mammogram for malignant neoplasm of breast (principal)
CPT/HCPCS: 77063; 77067

== ENCOUNTER 2024-10-12 18:56 | Emergency (ER) | payer BC, OTHER, SELFPAY ==
--- OUTSIDE RECORDS SUMMARY | 2024-10-12 18:58 | XMS_ITS | Clinical Summary ---
Author Organization [facility] Address [address] [place] [address] Phone Care Team Providers Care Cotton Machine Operator Name Role Phone Perry Llanos MD Primary Care Provider Allergies No known active allergies Medications metFORMIN [...] USE DIRECTED WITH INSULIN 9 Active Insulin Melrose, Disposable, 31 gauge x 3/16 Needle U [...] 24 hours). 5 Tablet 02/21/2022 2:56 PM VP HR DIVERSITY 2 Active Additional Information Patient not taking.Reported on 09/30/2024 apixaban (Eliquis) 5 mg tablet TAKE 1 TABLET(5 MG) BY MOUTH TWICE DAILY 180 Tablet 1 4 Active Active Problems Patient Care Coordination No te Formatting of this note migh t be different from the original. Loco Hodge MD--First Officer And Flight Instructor ([facility] @ ) Problem Noted Date Diagnosed Date S/P ablation of atrial flutter 09/29/2021 Heart palpitations 09/29/2021 Atrial flutter with rapid ventricular response 0 06/25/2021 Paroxysmal atrial flutter 06/25/2021 Type 2 diabetes mellitus wit hout complication, with long-term current use of insulin 12/04/2020 Encounters Date Type Department Care Team Description 10/11/2024 Abstract [facility] [address] [place] [address] Loco Hodge MD 10/09/2024 External Device Data STL ABSTRACTION Provider, Abstract 09/30/2024 10:15 AM CDT Office Visit [facility] EP AT [address] [place] [address] Shonna Cash NP Paroxysmal atrial fibrillation (CMS/HCC) (Primary Dx); Typical atrial flutter (CMS/HCC); Dizziness; correction (current) use of anticoagulants 09/24/2024 External Device Data STL ABSTRACTION Provider, Abstract 09/18/2024 External Device Data STL ABSTRACTION Provider, Abstract 09/02/2024 Results Follow-Up [facility] AT [address] [place] [address] Ana Hancock RN MOBILE CARDIAC OUTPATIENT TELEMETRY 08/27/2024 External Device Data STL ABSTRACTION Provider, Abstract 08/08/2024 Telephone [facility] EP AT [address] [place] [address] Kalia Ramirez MD Question 08/06/2024 Telephone [facility] EP AT [address] [place] [address] Kalia Ramirez MD Questions 08/02/2024 Telephone [facility] [address] [place] [address] Kalia Ramirez MD Question 08/02/2024 Telephone [facility] [address] [place] [address] Ayesha Beckford, MARIA D Appointment Notification 07/31/2024 11:04 AM CDT - 07/31/2024 11:59 PM CDT Hospital Encounter [facility] Non Invasive Cardiology [address] [place] [address] Kalia Ramirez MD Discharge Disposition: Home or Self Care 07/31/2024 10:30 AM CDT Office Visit [facility] EP AT [address] [place] [address] Kalia Ramirez MD Paroxysmal atrial fibrillation (CMS/HCC) (Primary Dx); Typical atrial flutter (CMS/HCC); Dizziness; Varicose veins of both lower extremities, unspecified whether complicated 07/25/2024 External Device Data STL ABSTRACTION Provider, Abstract 07/24/2024 External Device Data STL ABSTRACTION Provider, Abstract 07/23/2024 External Device Data STL ABSTRACTION Provider, Abstract [...] on file Legal Sex Female 11:23 AM VP HR DIVERSITY Gender Identity Not on file Sexual Orientation Not on file 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 Not on file Not o n file Last Filed Vital Signs Vital Sign Reading Time Taken Comments Blood Pressure 106/60 09/30/2024 9:23 AM CDT Pulse 83 09/30/2024 9:23 AM CDT Temperature 36.3 C (97.4 F) 02/21/2022 12:00 PM VP HR DIVERSITY Respiratory Rate 16 07/31/2024 10:05 AM CDT Oxygen Saturation 98% 09/30/2024 9:23 AM CDT Inhaled Oxygen Concentration - - Weight 73 kg (161 lb) 09/30/2024 9:23 AM CDT Height 172.7 cm (5' 8) 09/30/2024 9:23 AM CDT Body Mass Index 24.48 09/30/2024 9:23 AM CDT Plan of Treatment Upcoming Encounters Date Type Department Care Team (Late st Contact Info) Description 03/14/2025 8:30 AM VP HR DIVERSITY Office Visit [facility] EP AT [address] [place] [address] Reddy Poole MD [address] [place] [address] [address] [place] [address] 04/04/2025 9:45 AM VP HR DIVERSITY Office Visit [facility] EP AT [address] [place] [address] Kingsley Lynn MD [address] [place] [address] [address] [place] [address] Health Maintenance Due Date Last Done Comments [...] - Risk 60-74 years 1-dose series) 2021 PAP SMEAR 12/05/2023 12/04/2020, 02/08/2019 Preventative Visit- Commercial 03/06/2024 12/04/2020 , 02/08/2019 INFLUENZA VACCINE (#1) 2024 DIABETES HBA1C Q 6 MONTHS 03/19/20252024, 04/03/2024, 03/08/2023, Additional history exists CERVICAL CANCER SCREENING 12/04/2025 HPV/Cotest (21-29) 12/04/2025 12/04/2020, 02/08/2019 HPV/Cotest (30-65) 12/04/2025 12/04/2020, 02/08/2019 Medical Devices Implanted Type Area Layout Worker Device Identifier Shelf Expiration Date Model / Serial / Lot Dev Vns Vasc Clsr Vascade Mvp St [id number] - [id number] Implanted:Qty : 1 on 08/09/2021 at [facility] Closure Device Right: Groin [employer] 06/04/2023 800-612C- 10U / / [id number] 06C Dev Vns Vasc Clsr Vascade M[address] [id number] - [id number] Implanted:Qty : 1 on 08/09/2021 at [facility] Closure Device Right: Groin [employer] 06/04/2023 800-612C- 10U / / [id number] 06C Dev Vns Vasc Clsr Vascade M[address] [id number] - [id number] Implanted:Qty : 1 on 08/09/2021 at [facility] Closure Device Left: Groin [employer] 06/04/2023 800-612C- 10U / / [id number] 06C Dev Vns Vasc Clsr Vascade M[address] [id number] - [id number] Implanted:Qty : 1 on 02/21/2022 at [facility] Closure Device Left: Groin [employer] 11/30/2023 800-612C- 10U / +[id number] / [id number] 29C Dev Vns Vasc Clsr Vascade M[address] [id number] - [id number] Implanted:Qty : 1 on 02/21/2022 at [facility] Closure Device Right: Groin [employer] 11/30/2023 800-612C- 10U / +[id number] / [id number] 29C Dev Vns Vasc Clsr Vascade [address] [id number] - [id number] Implanted:Qty : 1 on 02/21/2022 at [facility] Closure Device Right: Groin [employer] 11/30/2023 800-612C- 10U / +[id number] / [id number] 29C Procedures Procedure Name Priority Date/Time Associated Diagnosis Comments MOBILE CARDIAC OUTPATIENT TELEMETRY Routine 08/29/2024 5:00 AM CDT Paroxysmal atrial fibrillation (CMS/HCC) Dizziness AK ECG ROUTINE ECG W/LEAST 12 LDS W/I&R Routine 07/31/2024 10:55 AM CDT Paroxysmal atrial fibrillation (CMS/HCC) CERV/VAG CYTO AGE BASED SCREEN PAP Routine 12/04/2020 1:12 PM CDT Encounter for gynecological examination with abnormal finding Screening for HPV (human papillomavirus) from Last 3 Months or Most Recently Relevant to Health Maintenance Results * MOBILE CARDIAC OUTPATIENT TELEMETRY (08/29/2024 5:00 AM CDT) 08/29/2024 5:00 AM CDT Narrative INTERFACE SYSTEM - 09/01/2024 4:28 PM CDT [facility] [address] [place] [address] Test Date: 2024-08-29 Pat Name: MISTI CHÁVEZ Department: Room: Gender: Female Greenskeeper Supervisor: : 1960 Requested By: KALIA RAMIREZ Order Number: [id number] Rajat LOPEZ: Miko Ireland Interpretive Statements Patient monitored for 28d 22h 42m Patient symptoms correlated with sinus rhythm without ectopy 5,903 PACs with PAC burden of less than 1% and no SVT 11,567 PVCs with PVC burden of less than 1% and no NSVT There were no atrial fibrillation events, pauses, or advanced AV block Electronically Signed On 09-01-2024 16:28:31 CDT by Miko Ireland Procedure Note Miko Ireland MD - 09/01/2024 [facility] [address] [place] [address] Test Date: 2024-08-29 Pat Name: MISTI CHÁVEZ Department: Room: Gender: Female Greenskeeper Supervisor: : 1960 Requested By: KALIA RAMIREZ Order Number: [id number] Rajat MD: Miko Ireland Interpretive Statements Patient monitored for 28d 22h 42m Patient symptoms correlated with sinus rhythm without ectopy 5,903 PACs with PAC burden of less than 1% and no SVT 11,567 PVCs with PVC burden of less than 1% and no NSVT There were no atrial fibrillation events, pauses, or advanced AV block Electronically Signed On 09-01-2024 16:28:31 CDT by Miko Ireland us Kalia Ramirez MD CARDIAC SERVICES ORDERABLES Fi nal Result INTERFACE SYSTEM Refer to clinic/hospital department * AK ECG ROUTINE ECG W/LEAST 12 LDS W/I&R (07/31/2024 10:55 AM CDT) Narrative [facility] - 07/31/2024 10:55 AM CDT Kalia Ramirez MD 07/31/2024 10:56 AM Sinus rhythm at 80 bpm. Procedure Note Kalia Ramirez MD - 07/31/2024 10:55 AM CDT Sinus rhythm at 80 bpm. Kalia Ramirez MD ECG ORDERABLES Final Result [facility] CLIA #[id number] [address] [place] [address] * CERV/VAG CYTO AGE BASED SCREEN PAP (12/04/2020 1:12 PM CDT) SEE NOTE [facility] Comment: This order for age-based cervical cancer and STI screening follows ACOG guidelines(PB 168, 140, HVA944). See individual assays for performing site location. [...] malignancy. Atrophic pattern; predominantly parabasal cells COMMENT [facility] Comment: This Pap test has been evaluated with computer assisted technology. SENIOR HARDWARE DESIGN ENGINEER: [facility] Comment: TMK, CT(ASCP) CT screening location: [place] [address] [place] [address] SEE NOTE [facility] Comment: EXPLANATORY NOTE: The Pap is a [...] information. HPV E6/E7 Not Detected Not Detected [facility] Comment: Methodology: Recording Engineer-Mediated Amplification This assay detects E6/E7 viral messenger RNA (mRNA) from 14 high-risk HPV types (16,18,31,33,35,39,45,51,52,56,58,59,66,68). The analytical performance characteristics of this assay have been determined by [facility] The modifications have not been cleared or approved by the FDA. This assay has been validated pursuant to the CLIA regulations and is used for clinical purposes. For additional information, please refer to http://education.Wiseryou.iConclude/faq/DMQ074g5 (This link if provided for information/ educational purposes only.) Test Performed at: [facility] [address] [address] Rusty Page D.O., MPH SL Genital SWAB OF ENDOCERVIX / Unknown 12/04/2020 1:12 PM CDT 12/04/2020 11:37 PM CDT us Mellisa Garcia NP PATHOLOGY/CYTOLOGY ORDERABLES Final Result [facility] [address] [place] [address] from Last 3 Months or Most Recently Relevant to Health Maintenance Insurance [facility] Address: [facility] [address] [place] [address] [address] [facility] [employer] [facility] Advance Directives For more information, please contact: [phone] Documents on File Type Date Recorded Patient Environmental Auditor Expl anation Advance Directive Living Will 06/25/2021 [...] 9:09 PM 06/26/2021 5:56 PM Care Teams Cotton Machine Operator Relationship Specialty Start Date End Date Perry Llanos MD [address] [address] PCP - General Family Practice 02/04/19
--- OUTSIDE RECORDS SUMMARY | 2024-10-12 18:58 | XMS_ITS | Encounter Summary ---
Author Organization [facility] Address [address] [place] [address] Care Team Providers Care Algebraist Name Role Phone Unavailable Primary Care Provider Unavailabl e Encounter Details Date Type Department Care Team (Late st Contact Info) Description 03/08/2023 Lab Requisition [facility] - DermPath Lab [address] [place] [id number] Mukul Wilkinson MD [address] [place] [id number] Social History Tobacco Use Types Packs/Day Years Used Date Smoking Tobacco: Never Assessed Comments Unknown Sex and Gender Information Value Date Recorded Sex Assigned at Not on file Legal Sex Female 5:33 PM CURB AND GUTTER LABORER Gender Identity Not on file Sexual Orientation Not on file documented as of this encounter Plan of Treatment Not on file documented as of this encounter Procedures Procedure Name Priority Date/Time Associated Diagnosis Comments DERMATOPATHOLOGY Routine 03/07/2023 3:33 AM CURB AND GUTTER LABORER documented in this encounter Results * DERMATOPATHOLOGY (03/07/2023 3:33 AM CURB AND GUTTER LABORER) Case Report Dermatopathology Report Case: [id number] Authorizing Provider: Mukul Wilkinson MD Collected: 03/07/2023 03:33 AM Ordering Location: [facility] DermPath Lab Received: 03/08/2023 02:22 PM Pathologist: Jaz Yi MD Specimen: Skin, dorsal right hand 2:50 PM [employer]B AND GUTTER LABORER DERMATOPATHOLOGY LABORATORY Final Diagnosis Specimen A. SKIN, dorsal right hand: BENIGN VERRUCOUS KERATOSIS, INFLAMED (L82.1) (see microscopic description) 2:50 PM CURB AND GUTTER LABORER DERMATOPATHOLOGY LABORATORY at [address] CURB AND GUTTER LABORER Clinical History R/O SCC 2:50 PM [facility] DERMATOPATHOLOG[facility] LABORATORY Gross Description Specimen A: Received is one formalin filled container labeled with the patient's name and designated dorsal right hand. The specimen consists of a shave biopsy measuring 7x7x1 mm. Jar 0. 2:50 PM [facility] DERMATOPATHOLOGY LABORATORY Microscopic Description Specimen A. SKIN, dorsal right hand: Sections show hyperkeratosis, slight papillomatosis, hypergranulosis, and acanthosis. IA lymphohistiocytic infiltrate is present within the dermis where it focally interacts with the epidermis. Scattered necrotic keratinocytes are observed. These histological findings can be seen in a verruca vulgaris or a seborrheic keratosis. Additional deeper sections were obtained and reviewed. 2:50 PM [facility] DERMATOPATHOLOGY LABORATORY Disclaimer An external and internal positive and negative controls are appropriate for the histochemical, immunohistochemical and immunofluorescence stain(s) in this case (if any), except where stated explicitly. The performance characteristics of the stain(s) cited in this report were developed and its performance characteristic determined by the Dermatopathology Laboratory at [facility], directed by Dr. Elvira Bo. These tests need not be, and therefore are not, approved by the [place] Food and Drug Administration. The tests are used for clinical purposes. Billing Codes Specimen Charges Stain Charges 36088 1 2:50 PM [facility] DERMATOPATHOLOGY LABORATORY Embedded Images 2:50 PM [facility] DERMATOPATHOLOGY LABORATORY Pathology/Cytolo gy TISSUE SPECIMEN FROM SKIN / Unknown 03/07/2023 3:33 AM CURB AND GUTTER LABORER 03/08/2023 2:22 PM [facility] us Mukul Wilkinson MD LAB - PATHOLOGY/CYTOLOGY ORD ERABLES Final Result DERMATOPATHOLOGY LABORATORY [facility] - Department of Dermatology [address] [place] [address], [facility] [phone] documented in this encounter Visit Diagnoses Not on filedocumented in this encounter
--- OUTSIDE RECORDS SUMMARY | 2024-10-12 18:58 | XMS_ITS | Clinical Summary ---
Author Organization [facility] Address [address] [place] [address] Care Team Providers Care Electronic Publications Specialist Name Role Phone Unavailable Primary Care Provider Unavailabl e Source Comments [facility] Style [facility]inder,non-owned Affiliates and Associated Physician Practices is amultiple site organization consisting of ambulatory clinics and hospital sitesin [place], [place], [place] and [place]. This disclosure is being madepursuant to the Care Everywhere program and may not contain all information available regarding this patient. Last updated 17.[facility] Social History Tobacco Use Types Packs/Day Years Used Date Smoking Tobacco: Never Assessed Comments Unknown Sex and Gender Information Value Date Recorded Sex Assigned at Not on file Legal Sex Female 5:33 PM PAPER SORTER AND COUNTER Gender Identity Not on file Sexual Orientation [...] SCREENING 1960 LIPID TESTING 1960 MAMMOGRAM 1960 HIV SCREENING 1976 HEPATITIS C SCREENING 04/30/1979 DTAP/TDAP/TD VACCINES (1 - Tdap) 1980 PAP SMEAR 1982 PNEUMOCOCCAL VACCINE 50+ (1 of 1 - PCV) 05/05/2011 ZOSTER VACCINE (1 of 2) 05/05/2011 COVID-19 VACCINE (1 - 2023-2 5 season) 2023 DEPRESSION SCREENING 03/06/2024 INFLUENZA VACCINE (#1) 2024 Respiratory Syncytial Virus (RSV) Vaccine Pt: [...] patient's age to complete this [place] [address] [facility]
--- OUTSIDE RECORDS SUMMARY | 2024-10-12 18:58 | XMS_ITS | Encounter Summary ---
Author Organization [facility] Address [address] [place] [address] Care Team Providers Care Digital Marketing Executive Name Role Phone Perry Llanos MD Primary Care Provider + [phone] Reason for Visit * Reason Onset Date Comments Question 08/02/2024 Encounter Details Date Type Department Care Team (Late st Contact Info) Description 08/02/2024 Telephone [facility] [address] [place] [address] Kalia Ramirez MD [address] [place] [address] [address] [place] [address] Question Social History Tobacco Use Types Packs/Day Years Used Date Smoking Tobacco: Former Smokeless Tobacco: Never Comments:Quit 25 years ago Alcohol Use Standard Drinks/Week Comments Not Currently 0 (1 standard drink = 0.6 oz pur e alcohol) Comments No Sex and Gender Information Value Date Recorded Sex Assigned at Not on file Legal Sex Female 11:23 AM ECHOCARDIOGRAPH TECH Gender Identity Not on file Sexual Orientation Not on file 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 She is concerned of red bumps on her legs and a referral for vascular surgery was put in for her to schedule. She is not wanting surgery as a first option and was denied an appointment due to her needing to be assessed by a specialist before surgery. She is unsure if she would need an ultrasound for blood flow as well. Please advise and call Misti at [phone]. Thank You! documented in this encounter Plan of Treatment Upcoming Encounters Date Type Department Care Team (Late st Contact Info) Description 03/14/2025 8:30 AM ECHOCARDIOGRAPH TECH Office Visit [facility] EP AT [address] [place] [address] Reddy Poole MD [address] [place] [address] [address] [place] [address] 04/04/2025 9:45 AM ECHOCARDIOGRAPH TECH Office Visit [facility] EP AT [address] [place] [address] Kingsley Lynn MD [address] [place] [address] [address] [place] [address] documented as of this encounter Visit Diagnoses Not on filedocumented in this encounter Care Teams Digital Marketing Executive Relationship Specialty Start Date End Date Perry Llanos MD [address] [address] PCP - General Family Practice 02/04/19 documented as of this encounter
--- OUTSIDE RECORDS SUMMARY | 2024-10-12 18:58 | XMS_ITS | Clinical Summary ---
Author Organization [facility] Address [address] [place] [address] Care Team Providers Care Carpenter Wooden Tank Erecting Name Role Phone Perry Llanos MD Primary Care Provider [phone] Allergies No known active allergies Medications NOVOLOG FLEXPEN U-100 INSULIN 100 unit/mL (3 mL) insulin pen INJ 10 UNITS SC B EACH MEAL UTD 3 9 Active LANTUS U-100 INSULIN 100 unit/mL injection Inject 20 Units under the skin nightly 5 9 Active BD ULTRA-FINE MINI PEN NEEDLE 31 gauge x 3/16 needle U WITH NOVOLOG UTD 5 9 Active insulin syringe-needle U-100 0.5 mL 31 gauge x 5/16 syringe USE DIRECTED WITH INSULIN 5 9 Active Eliquis 5 mg tablet Take 1 tablet (5 mg total) by mouth 2 (two) times a day 3 Active FreeStyle Lite Strips strip USE TO TEST FOUR TIMES DAILY DIRECTED 400 strip 2 3 Active cholecalcifero l (VITAMIN D-3) 2000 unit tablet Take by mouth daily Active zinc acetate 25 mg (zinc) capsule Take by mouth Active cetirizine (ZyrTEC) 10 mg tablet Take 1 tablet (10 mg total) by mouth daily Active metFORMIN (GLUCOPHAGE) 500 mg tablet TK 1 T PO BID B MEALS 3 04/12/201 9 09/17/19 25 Discontinu ed(Alterna te therapy) glucagon (Baqsimi) 3 mg/actuation spray,non-aero gisselle Administer 1 spray (3 mg total) into one nostril as needed (for use in case of emergency for hypoglycemia) 1 each 2 1 09/17/19 25 Discontinu ed(Patient Reported) Active Problems Problem Noted Date Diagnosed Date Arthralgia of ankle 10/10/2013 Arthralgia of shoulder 11/30/2011 Type 1 diabetes mellitus without complication Assessment & Plan (04/03/2024 10:08 AM METAL FURNACE OPERATOR): Continue Mmetformin, DI and CGM Assessment & Plan (03/08/2023 10:36 AM METAL FURNACE OPERATOR): A1C 7.9% Is on 16.5 units Lantus, [...] Dexcom reviewed, extremely labile. 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 Decrease Lantus by 20% to 16u HS, breakfast ratio to 1:10, lunch and dinner ratios remain the same Notify us for DEXCOM review in 1 week Referral to RD and CDNE Encounters Date Type Department Care Team Description 09/16/2024 8:15 AM CDT Office Visit [facility] [address] [id number] Vladimir Willoughby MD Type 1 diabetes mellitus [...] on file Legal Sex Female 7:37 PM METAL FURNACE OPERATOR Gender Identity Not on file Sexual Orientation Not on file Obstetrics History Last Filed Vital Signs Vital Sign Reading Time Taken Comments Blood Pressure 107/70 09/16/2024 8:30 AM CDT Pulse 78 09/16/2024 8:30 AM CDT Temperature - - Respiratory Rate - - Oxygen Saturation 98% 09/16/2024 8:30 AM CDT Inhaled Oxygen Concentration - - Weight 73.1 kg (161 lb 3.2 oz) 09/16/2024 8:30 A M CDT Height 172.7 cm (5' 8) 09/16/2024 8:30 AM CDT Body Mass Index 24.51 09/16/2024 8:30 AM CDT Plan of Treatment Health Maintenance Due Date [...] 11/05/2022 11/05/2021 Lipid Panel 03/08/2024 03/08/2023, 09/08/2020 Influenza Vaccine (#1) 2024 Hemoglobin A1C 03/19/2025 09/16/2024, 03/07, 03/08/2023, Additional history exists Procedures Procedure Name Priority Date/Time Associated Diagnosis Comments POCT HEMOGLOBIN A1C Routine 09/16/2024 9 :00 AM CDT Type 1 diabetes mellitus without complication (HCC) POCT LIPID PANEL Routine 03/08/2023 10:0 7 AM METAL FURNACE OPERATOR Type 1 diabetes mellitus without complication (HCC) BASIC METABOLIC PANEL Routine 12/11/2020 11:30 AM CDT Type 1 diabetes mellitus without complication (HCC) from Last 3 Months or Most Recently Relevant to Health Maintenance Results * (ABNORMAL) POCT hemoglobin A1c (09/16/2024 9:00 AM CDT) Hemoglobin A1C, POC 7.0(A) 4.0 - 5.6 % Capillary blood 09/16/2024 9 :00 AM CDT Vladimir Willoughby MD POINT OF CARE TEST ORDER LATIA Final Result * POCT lipid panel (03/08/2023 10:07 AM METAL FURNACE OPERATOR) HDL, POC 63 mg/dL Triglycerides, POC 64 mg/dL LDL Cholesterol POC 100 mg/dL Chol/HDL Ratio, POC 2.8 Non-HDL Cholesterol, POC 113 mg/dL Cholesterol Total, POC 176 mg/dL Capillary blood 03/08/2023 1 0:07 AM METAL FURNACE OPERATOR Juila Leeann Yulisa LEADING FIREFIGHTER POINT OF CARE TEST ORDER LATIA Final [...] - 12/12/2020 3:08 PM CDT Performed at: [address] [id number] Jingle Writer: Sarthak Burks PhD, Phone: [phone] us Julia Márquez LEADING FIREFIGHTER LAB BLOOD ORDERABLES Fin al Result [facility] - 01 from Last 3 Months or Most Recently Relevant to Health Maintenance Insurance [employer] Member Subscriber Plan / Payer (Ef fective 2006-Present) Name:Misti Chávez Relation to Subscriber:Self Name:Misti Chávez Payer ID:[id number] (NAIC) Group ID:[id number] Type:[employer] Address: [address] CLAIMS [facility] Member Subscriber Plan / Payer ( fective 2018-Present) Name:Misti Chávez Relation to Subscriber:Spouse Name:FAYE CHÁVEZ Subscriber ID:Not on file Date of :1964 Payer ID:[id number] (NAIC) Group ID:[id number] Type:[employer] Address: [address] [facility] [employer] Member Subscriber Plan / Payer (Ef fective 2006-Present) Name:Misti Chávez Relation to Subscriber:Self Name:Misti Chávez Payer ID:[id number] (NAIC) Group ID:[id number] Type:[facility] Address: [address] [facility] [employer] Member Subscriber Plan / Payer (Ef fective 2006-Present) Name:Misti Chávez Relation to Subscriber:Self Name:Misti Chávez Payer ID:[id number] (NAIC) Group ID:[id number] Type:[facility] Address: [address] [place] [id number] Care Teams Carpenter Wooden Tank Erecting Relationship Specialty Start Date End Date Perry Llanos MD [address] [address] PCP - General Family Medicine 12/11/20
--- OUTSIDE RECORDS SUMMARY | 2024-10-12 18:58 | XMS_ITS | Encounter Summary ---
Author Organization [facility] Address [address] [place] [address] Care Team Providers Care Plant Senior Manager Name Role Phone Perry Llanos MD Primary Care Provider [phone] Encounter Details Date Type Department Care Team (Late st Contact Info) Description 10/11/2024 Abstract [facility] [address] [place] [phone] Loco Hodge MD [address] [place] [address] [address] [place], [place] [id number] Social History Tobacco Use Types Packs/Day Years Used Date Smoking Tobacco: Former Smokeless Tobacco: Never Comments:Quit 25 years ago Alcohol Use Standard Drinks/Week Comments Not Currently 0 (1 standard drink = 0.6 oz pur e alcohol) Comments No Sex and Gender Information Value Date Recorded Sex Assigned at Not on file Legal Sex 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 Gender Identity Not on file Sexual Orientation Not on file 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 Not on file Not o n file documented as of this encounter Plan of Treatment Upcoming Encounters Date Type Department Care Team (Late st Contact Info) Description 03/14/2025 8:30 AM 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 Office Visit [facility] AT [address] [place] [phone] Reddy Poole MD [address] [place] [address] [address] [place] [address] 04/04/2025 9:45 AM 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 Office Visit [facility] AT [facility] [address] [facility] [address] [place] [address] Kingsley Lynn MD [address] [facility] [address] and [address] [place] [address] documented as of this encounter Visit Diagnoses Not on filedocumented in this encounter Care Teams Plant Senior Manager Relationship Specialty Start Date End Date Perry Llanos MD [address] [phone] PCP - General Family Practice 02/04/19 documented as of this encounter
[2024-10-12 19:21] VITALS: BP 107/65; PULSE 98; RESP 16; TEMP 36; O2SAT 98
--- NOTE | 2024-10-12 19:34 | ED_ITS ---
HPI - Skin/Abscess/Foreign Bdy General Chief complaint: Skin/Abscess/Foreign Body Stated complaint: Rash on legs Time Seen by Provider: 10/12/24 19:34 Source: patient Mode of arrival: ambulatory Limitations: no limitations History of Present Illness HPI narrative: 64-year-old female history of diabetes presented for complaint of a red rash to arms and legs. 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 She uses clobetasol and neosporin lotion. States today after soaking her legs in chlorine lesions appeared redder than normal. Denies lip, tongue, or throat swelling, shortness of breath or wheezing. Denies changes to soap, detergent, lotion, or any other exposures. No one else in the house or any contacts with similar symptoms. Related Data Home Medications ?Medication ?Instructions ?Recorded ?Confirmed ?Last Taken ?Type apixaban 5 mg tablet (Eliquis) 5 mg PO BID 12/16/22 12/16/22 Unknown History cetirizine 10 mg tablet (Zyrtec) 10 mg PO DAILY 12/16/22 12/16/22 Unknown History cholecalciferol (vitamin D3) 50 100 mcg PO DAILY 12/16/22 12/16/22 Unknown History mcg (2,000 unit) tablet (Vitamin D3) insulin aspart U-100 100 unit/mL See Rx Instructions .Route .COMPLEX 12/16/22 12/16/22 Unknown History (3 mL) subcutaneous pen (Novolog FlexPen U-100 Insulin aspart) insulin glargine 100 unit/mL 16.5 unit subcut HS 12/16/22 12/16/22 Unknown History subcutaneous solution (Lantus U-100 Insulin) metformin 500 mg tablet 500 mg PO BID 12/16/22 12/16/22 Unknown History zinc 22 mg tablet 22 mg PO DAILY 12/16/22 12/16/22 Unknown History Allergies Allergy/AdvReac Type Severity Reaction Status Date / Time No Known Allergies Allergy Verified 10/12/24 19:22 Review of Systems Review of Systems: CONSTITUTIONAL: Denies body aches, fever, chills, or sweats. EYES: Denies visual changes, redness, or discharge. ENT: Denies rhinorrhea, congestion CARDIOVASCULAR: Denies chest pain, palpitations, or edema. RESPIRATORY: Denies cough or dyspnea. GASTROINTESTINAL: Denies abdominal pain, nausea, vomiting, or diarrhea. SKIN: reports rash MUSCULOSKELETAL: Denies back pain, joint pain, or myalgia. NEUROLOGIC: Denies headache, numbness, tingling, or weakness. [facility] Past Medical History Medical History (Updated 10/12/24 @ 19:39 by Erin Salomon APRN) Diabetes Social History Social History Smoking packs per day: 0.75 Smoking cigarettes per day: 15.0 Years smoked: 15 Smoking pack-years: 11.25 Smoking status: Former smoker Tobacco type: cigarettes Alcohol intake: current Substance use: never Substance use type: does not use Living arrangements: alone Spiritual care concerns: No Comments At time of signature, I have reviewed and agree with nursing past medical, surgical, social and family history unless otherwise noted. Please see nursing chart for further information. There is no relevant family history pertinent to the presenting complaint Exam Narrative: GENERAL: Well-appearing EYES: conjunctivae clear, and EOMI. ENT: Mucous membranes moist. Oropharynx without edema, erythema or lesions. NECK: Supple. No lymphadenopathy CHEST: Clear to auscultation. HEART: Regular rate and rhythm. SKIN: Warm, dry. Diffuse erythematous round slightly raised patches to bilateral upper and lower extremities, most are equal size approx 0.5cm. No warmth, fluctuance, drainage or tenderness. NEURO: Alert and oriented x3. Course Course Emergency Course: Patient is aware of diagnosis, understands and agrees to treatment plan. Anticipatory guidance given. Patient agrees to follow-up as directed and is aware of reasons to seek care at the emergency department. Portions of this record may have been created with voice recognition software Level of Care: Express Care Visit Vital Signs Vital signs: Vital Signs Temperature 96.8 F L 10/12/24 19:21 Pulse Rate 98 10/12/24 19:21 Respiratory Rate 16 10/12/24 19:21 Blood Pressure 107/65 10/12/24 19:21 Pulse Oximetry 98 10/12/24 19:21 Oxygen Delivery Room Air 10/12/24 19:21 Temperature 96.8 F L 10/12/24 19:21 Pulse Rate 98 10/12/24 19:21 Respiratory Rate 16 10/12/24 19:21 Blood Pressure 107/65 10/12/24 19:21 Pulse Oximetry 98 10/12/24 19:21 Oxygen Delivery Room Air 10/12/24 19:21 Reviewed MDM - Skin/Abscess/Foreign Bdy MDM Narrative Medical decision making narrative: Discussed physical exam findings, most c/w folliculitis. She is advised to f/u with derm. She declines oral steroid today. Advised supportive measures and signs/symptoms to go to the ER. Pt is appropriate for outpt treatment and f/u. Differential Diagnosis Differential diagnosis: Likely abscess of skin or subcutaneous tissue, viral exanthem, dermatophytosis, urticaria, herpes zoster, cellulitis, eczema, insect bites, impetigo and contact dermatitis Discharge Plan Discharge Clinical Impression: Folliculitis Patient Disposition: Home Condition: Stable Instructions: Antibiotic Form, Folliculitis (ED) Additional Instructions: Dermatologists: [facility] [address] [phone] [facility] [address] [phone] [facility] [address] [facility] [address] [place] [phone] [facility] [address] [phone] Wash the area with gentle soap and water only. Avoid chlorinated water, scented soaps or lotions Use skin cream as previously prescribed to reduce itchiness You can take Zyrtec according to package directions Avoid scratching when possible to prevent worsening of the condition and disruption of the skin that could lead to bacterial infection To relieve itching, place a cool washcloth or some ice over the area that itches, rather than scratching Follow up with primary care provider and Floor Layer. Call to schedule an appointment. Go to the ER if rash worsens or you have chest pain, trouble breathing, become hoarse, or start wheezing, develop belly cramps, vomiting or feel dizzy. Patient Language: Montenegrin Prescriptions: No Action metformin 500 mg tablet 500 mg PO BID insulin glargine [Lantus U-100 Insulin] 100 unit/mL solution 16.5 unit SUBCUT HS insulin aspart U-100 [Novolog FlexPen U-100 Insulin] 100 unit/mL (3 mL) insulin pen See Rx Instructions .ROUTE .COMPLEX Rx Instructions: slidding scale Eliquis 5 mg tablet 5 mg PO BID cetirizine [Zyrtec] 10 mg Tablet 10 mg PO DAILY zinc 22 mg Tablet 22 mg PO DAILY cholecalciferol (vitamin D3) [Vitamin D3] 50 mcg (2,000 unit) Tablet 100 mcg PO DAILY mesalamine [Lialda] 1.2 gram tablet,delayed release (DR/EC) 2.4 g PO .Daily Qty: 30 12RF Follow-up/Referrals: Viet,Perry Cesar MD [Primary Care Provider] - Time of Disposition: 19:36
== END 2024-10-12 19:40 | disposition home or self-care (01) ==
PROVIDERS: Emergency Provider Nurse Practitioner Family; PCP Family Medicine
DX: L73.9 Follicular disorder, unspecified (principal); E11.9 Type 2 diabetes mellitus without complications; Z79.4 Long term (current) use of insulin; Z79.84 Long term (current) use of oral hypoglycemic drugs; Z87.891 Personal history of nicotine dependence
CPT/HCPCS: 99211; G0463